=== PATIENT | male | born 1975 | race Asian ===

== ENCOUNTER → 2017-04-16 | Outpatient (CLI) | payer BC, OTHER | END | disposition home or self-care (01) | LOC: C.RDSM 14:24 | PROVIDERS: ATTEND Physical Medicine & Rehabilitation Sports Medicine | DX: M25.552 Pain in left hip (principal) ==

== ENCOUNTER → 2017-08-27 | Outpatient (CLI) | payer OTHER | END | disposition home or self-care (01) | LOC: C.RDSM 15:03 | PROVIDERS: ATTEND Physical Medicine & Rehabilitation Sports Medicine | DX: M25.552 Pain in left hip (principal) ==

== ENCOUNTER → 2017-09-28 | Outpatient (CLI) | payer OTHER ==
--- NOTE | 2017-09-28 10:40 | DIAGNOSTIC IMAGING REPORT ---
MRI OF THE LUMBAR SPINE WITHOUT IV CONTRAST CLINICAL HISTORY: Left lower extremity radiculopathy. Low back pain. COMPARISON STUDY: Radiographs of the lumbar spine dated 08/27/2017. TECHNIQUE: MRI of the lumbar spine is performed utilizing various T1 and T2-weighted sequences in the axial and sagittal planes. IV contrast was not administered for this examination. FINDINGS: Lumbar spine: Vertebral body height and alignment are maintained throughout the lumbar spine. There is straightening of the lumbar lordosis. No destructive bony lesion is seen. The transverse and spinous processes are intact as imaged. There is no evidence of spondylolysis. Tiny anterior osteophytes are seen in the lower lumbar region. Intervertebral discs: Degenerative disc desiccation is seen at L4-L5 and L5-S1. Mild loss of height is seen at L5-S1. The remaining discs are normal in height and signal intensity. Spinal cord: The visualized spinal cord is normal in morphology and signal intensity. The conus medullaris terminates at the level of L1. The nerve roots of the cauda equina are normal in morphology. L1-L2: Unremarkable. L2-L3: Unremarkable. L3-L4: Unremarkable. L4-L5: There is a small posterior disc bulge with annular fissure. There is no significant acquired compromise of the central canal. Mild bilateral subarticular stenosis is observed. The disc bulge likely abuts the transiting bilateral L5 nerve roots. The neural foramina are patent. L5-S1: There is a disc herniation eccentric to the left. This causes mass effect on the anterior left aspect of the thecal sac and impinges on the transiting left-sided sacral nerve roots. The neural foramina are widely patent. There is no significant central canal stenosis at this level. Sacrum: The visualized sacrum is normal in morphology and signal intensity. Soft tissues: The paraspinous soft tissues are within normal limits. The partially visualized retroperitoneal structures are grossly unremarkable but incompletely assessed. IMPRESSION: 1. There is a disc herniation eccentric to the left at L5-S1. This effaces the anterior left aspect of the thecal sac and impinges on the transiting left-sided sacral nerve roots. 2. Degenerative disc disease at L4-L5 as above. 3. No destructive bony lesion is identified. Dictated: 09/28/2017 10:05 AM Transcribed: 09/28/2017 10:39 AM [email or web address] Electronically signed by: Jeremiah Humphrey M.D. 09/28/2017 11:12 AM Dictated Date/Time: 09/28/2017 10:05 AM
== END | disposition home or self-care (01) ==
LOC: C.MRI 09:30
PROVIDERS: ATTEND Physical Medicine & Rehabilitation Sports Medicine
DX: M54.16 Radiculopathy, lumbar region (principal)

== ENCOUNTER → 2017-11-08 | Day surgery (SDC) | payer OTHER ==
[2017-11-01 11:04] VITALS: Ht 180.3 cm; Wt 72.7 kg
[~2017-11-08] VITALS: Ht 180.3 cm; Wt 72.7 kg
[~2017-11-08] MED LIST: IOPAMIDOL INJ 61% 15 ML VIAL ONE; LIDOCAINE HCL 1% MPF 5 ML VIAL ONE; MISCCAP80 PO; SODIUM CHLORIDE 0.9% INJ 10 ML VIAL ONE
--- NOTE | 2017-11-08 14:30 | History & Physical Bridge - [place] ---
H&P Re-Evaluation Bridge Note: I have examined the patient, reviewed the History & Physical and in the interval since the performance of the History & Physical I have noted the following changes of clinical significance: Patient at ASA level 1 status:No changes noted
--- NOTE | 2017-11-08 14:48 | [facility] Post Operative Brief Note ---
Immediate Operative Summary Operative Date Nov 08, 2017. Pre-Operative Diagnosis L5-S1 HNP W/ LEFT S1 RADICULOPATHY. Post-Operative Diagnosis SAME Procedure(s) Performed LUMBAR EPIDURAL STEROID INJECTION. Surgeon DR. Shannon [employer] Surgeon(s) None Estimated Blood Loss 0 Findings Consistent with Post-Op Diagnosis Specimens NA Drains None Anesthesia Type Local Complication(s) none Disposition Disposition:
--- NOTE | 2017-11-08 14:49 | Discharge Instructions ---
Discharge Instructions Date of Service Nov 08, 2017. Visit Reason for Visit: Radiculopathy, Lumbar Region Discharge Discharge Diagnosis / Problem: left leg pain Discharge Goals Goal(s): Decrease discomfort, Improve function Activity Recommendations Activity Limitations: resume your previous activity Anesthesia . Post Anesthesia Instructions: If you have had General Anesthesia or IV Sedation: * Do not drive today. * Resume driving when surgeon permits. * Do not make important decisions or sign legal documents today. * Call surgeon for: 1. Temperature elevations greater than 101 degrees F. 2. Uncontrollable pain. 3. Excessive bleeding. 4. Persistent nausea and vomiting. 5. Medication intolerance (nausea, vomiting or rash). * For nausea and vomiting use only clear liquids such as: tea, soda, bouillon until nausea subsides, then gradually increase diet as tolerated. * If you have any concerns or questions, call your surgeon's office. If physician is unavailable and it is an emergency, call 911 or go to the nearest emergency room. . Diet Recommendations Recommended Home Diet: resume previous diet Procedures Procedures Performed: LUMBAR EPIDURAL STEROID INJECTION. Pending Studies Studies pending at discharge: no Medical Emergencies . Who to Call and When: Medical Emergencies: If at any time you feel your situation is an emergency, please call 911 immediately. . Non-Emergent Contact Non-Emergency issues call your: Specialist . . "Provider Documentation" section prepared by Charanjit Iglesias. .
[2017-11-08 14:52] VITALS: TEMP 37.2
[2017-11-08 15:09] VITALS: BP 108/74; PULSE 61; O2SAT 97
--- NOTE | 2017-11-08 18:54 | OPERATIVE REPORT ---
DATE OF OPERATION: 11/08/2017 PREOPERATIVE DIAGNOSIS: L5-S1 herniated nucleus pulposus with left S1 radiculopathy. POSTOPERATIVE DIAGNOSIS: Same. PROCEDURE: Left paramedian L5-S1 interlaminar epidural steroid injection under fluoroscopic guidance. INDICATIONS: The patient is a 42-year-old male who presents today with a 7-month history of low back pain and radicular pain. He presents today, has not responded enough to conservative treatment, presents for an epidural steroid injection. PHYSICAL EXAMINATION: Pleasant male who prefers to stand. He has minimal sciatic notch sensitivity in the left sciatic notch. He has limitations with forward flexion, no problems with extension. He has no inhibition with straight leg testing and has intact motor and sensory of his lower extremities. CONSENT: Verbal and written consent was obtained from the patient. Risks and benefits were reviewed. Risks include but are not limited to abscess and allergic reaction. The patient wishes to proceed. PROCEDURE: The patient was taken back to the special procedures room of [facility] where he was maintained in a prone position. Backside was cleansed with Betadine x3 and a dry sterile dressing was applied. Fluoroscope was used to identify the L5-S1 interlaminar space. Overlying skin on the left side was anesthetized with 4 mL of lidocaine 1% with a 25-gauge 1-1/2-inch needle. A 22-gauge 3-1/2-inch Tuohy needle was then directed down toward the interlaminar space. It was advanced under lateral fluoroscopic guidance. Loss of resistance was noted at a depth of just under 5 cm. Isovue-300 contrast 1 mL was injected which demonstrated epidural uptake pattern which was confirmed with both AP and lateral views. He then underwent injection after negative aspiration, of 40 mg Depo-Medrol and 4 mL of preservative-free sodium chloride. Injection was well tolerated and produced a familiar transient radicular sensation down the leg. DISPOSITION: 1. The patient is taken out in the discharge recovery area where he will be discharged home once discharge criteria have been met. 2. Follow up in the [facility] office in 2-4 weeks. I attest to the content of the Intraoperative Record and any orders documented therein. Any exception s are noted below.
== END | disposition home or self-care (01) ==
LOC: X.SURG 13:50
PROVIDERS: ATTEND Physical Medicine & Rehabilitation
DX: M51.17 Intervertebral disc disorders with radiculopathy, lumbosacral region (principal)